=== PATIENT | female | born 1990 | race Two or more races ===

== ENCOUNTER 2023-01-17 14:21 | Outpatient (CLI) | payer OTHER | END 2023-01-17 16:09 | disposition home or self-care (01) | LOC: PRENATAL 14:21 | PROVIDERS: ATTEND Obstetrics & Gynecology Maternal & Fetal Medicine | DX: O35.3XX0 Maternal care for (suspected) damage to fetus from viral disease in mother, not applicable or unspecified (principal); O44.00 Complete placenta previa NOS or without hemorrhage, unspecified trimester; Z3A.28 28 weeks gestation of pregnancy ==

== ENCOUNTER → 2023-02-27 | Outpatient (CLI) | payer OTHER | END | disposition home or self-care (01) | LOC: PRENATAL 16:00 | PROVIDERS: ATTEND Obstetrics & Gynecology Maternal & Fetal Medicine | DX: O26.849 Uterine size-date discrepancy, unspecified trimester (principal); O36.8199 Decreased fetal movements, unspecified trimester, other fetus; Z3A.34 34 weeks gestation of pregnancy ==

== ENCOUNTER 2024-05-21 12:42 | Outpatient (CLI) | payer OTHER ==
[~2024-05-21 12:42] MED LIST: PRENATAL TABLE1 EAC1 PO
== END 2024-05-21 12:48 | disposition home or self-care (01) ==
LOC: PRENATAL 12:42
PROVIDERS: ATTEND Obstetrics & Gynecology Maternal & Fetal Medicine
DX: Z76.1 Encounter for health supervision and care of foundling (principal)

== ENCOUNTER 2024-07-05 13:56 | Outpatient (CLI) | payer OTHER | END 2024-07-05 13:57 | disposition home or self-care (01) | LOC: PRENATAL 13:56 | PROVIDERS: ATTEND Obstetrics & Gynecology Maternal & Fetal Medicine | DX: O44.00 Complete placenta previa NOS or without hemorrhage, unspecified trimester (principal); Z3A.22 22 weeks gestation of pregnancy ==

== ENCOUNTER 2024-09-15 14:52 | Outpatient (CLI) | payer OTHER | END 2024-09-15 14:53 | disposition home or self-care (01) | LOC: PRENATAL 14:52 | PROVIDERS: ATTEND Obstetrics & Gynecology Maternal & Fetal Medicine | DX: O26.849 Uterine size-date discrepancy, unspecified trimester (principal); O36.8199 Decreased fetal movements, unspecified trimester, other fetus; Z3A.33 33 weeks gestation of pregnancy ==

== ENCOUNTER 2024-11-01 07:18 | Inpatient (IN) | payer OTHER ==
[2024-11-01] VITALS (8 sets, daily range): BP systolic 117–135; BP diastolic 67–90
[~2024-11-01] VITALS: Ht 162.6 cm; Wt 85.3 kg
[2024-11-01] MEDS ORDERED: RINGERS SOLUTION,LACTATED 1,000 ML IV SCH (07:45)
[2024-11-01] MEDS ORDERED: OXYTOCIN 500 ML IV SCH (08:15)
[2024-11-01] MEDS ORDERED: MORPHINE SULFATE 4 MG/ML VIAL IV ONE ×2 (08:15→13:45)
[2024-11-01 08:40] LABS: HEMATOCRIT 33.9 % (36.0-45.00); HEMOGLOBIN 11.6 g/dL (12.0-15.00); MEAN CELL VOLUME 85.7 fL (80.00-100.00); MEAN CORPUSCULAR HEMOGLOBIN 29.3 pg (27.00-32.0); MEAN CORPUSCULAR HGB CONC 34.1 g/dl (32.0-36.0); PLATELET COUNT 326 K/uL (150-450); RED BLOOD COUNT 3.95 M/uL (4.00-6.00)
[2024-11-01 08:43] LABS: PH,URINE 5.5 (5.0-8.0); URINE APPEARANCE Clear; URINE BILIRRUBIN Negative (NEGATIVE); URINE BLOOD Small; URINE COLOR Yellow; URINE GLUCOSE Negative (NEGATIVE); URINE LEUKOCYTE Negative; URINE NITRATE Negative; URINE PROTEIN Negative (NEGATIVE); URINE UROBILINOGEN 0.2 E.U./dl
[2024-11-01 08:46] LABS: URINE BACTERIA 417.2 uL (0.0-1933); URINE EPITHELIAL CELLS 26.5 uL (0.0-38.8); URINE RBC 5.4 uL (0.0-20.8); URINE WBC 7.2 uL (0.0-23.2)
[2024-11-01 09:08] LABS: URINE CAST 0.14 uL (0.0-1.40); URINE KETONE 40 (NEGATIVE)
[2024-11-01 09:20] LABS: INR 0.94; PARTIAL THROMBOPLASTIN TIME 26.7 SECONDS (22.0-34.0); PROTHROMBIN TIME 10.3 SECONDS (9.0-11.5)
[2024-11-01 09:27] LABS: BILIRUBIN TOTAL 0.52 mg/dL (0.3-1.2); CALCIUM 9.2 mg/dL (8.5-10.1); CREATININE SERUM 0.56 mg/dL (0.55-1.02); GFR 125.45; GLOBULINA 4.1 G/DL (2.4-3.5); POTASSIUM 4.13 mEq/L (3.5-5.1); TOTAL PROTEIN 7.1 gm/dL (6.4-8.2)
[2024-11-01] MEDS ORDERED: ERYTHROMYCIN BASE OPHT 1GM EACH TUBE OP ONE ×2 (15:21→17:15)
[2024-11-01] MEDS ORDERED: OXYTOCIN 20 UNITS/1000ML RL PIGGYBAG IV ONE (15:21)
[2024-11-01] MEDS ORDERED: LIDOCAINE HCL 1% 10ML VIAL ONE (15:22)
[2024-11-01] MEDS ORDERED: CHLORHEXIDINE GLUCONATE 120 ML BOTTLE TOP ONE ×2 (15:22→17:15)
[2024-11-01] MEDS ORDERED: IBUprofen 400 MG TABLET PO PRN (16:15)
[2024-11-01] MEDS ORDERED: OXYTOCIN 1,000 ML IV SCH (17:15)
[2024-11-01] MEDS ORDERED: LIDOCAINE HCL 1% 10ML VIAL IJ ONE (17:15)
[2024-11-01 20:23] LABS: HEMATOCRIT 35.7 % (36.0-45.00); HEMOGLOBIN 11.9 g/dL (12.0-15.00); MEAN CELL VOLUME 86.9 fL (80.00-100.00); MEAN CORPUSCULAR HGB CONC 33.3 g/dl (32.0-36.0); PLATELET COUNT 359 K/uL (150-450); RED BLOOD COUNT 4.11 M/uL (4.00-6.00); RED CELL DISTRIBUTION WIDTH 14.2 % (11.5-14.5)
[2024-11-02 00:56] VITALS: BP 120/76
[2024-11-02 04:00] VITALS: BP 95/55
[2024-11-02 08:28] VITALS: BP 113/75
[2024-11-02] MEDS ORDERED: PNV,CALCIUM 72/IRON/FOLIC ACID 1 TAB TABLET PO SCH (09:00)
[2024-11-02 13:21] VITALS: BP 116/74
[2024-11-02 16:00] VITALS: BP 122/81
[2024-11-03] VITALS: BP 107/70
[2024-11-03 09:04] VITALS: BP 121/87
== END 2024-11-03 11:41 | disposition home or self-care (01) | DRG 807 ==
LOC: LDR 07:18 → OB/GYN 17:28
PROVIDERS: ADMIT Obstetrics & Gynecology; ATTEND Obstetrics & Gynecology
PROC: 10E0XZZ Delivery of Products of Conception, External Approach (ICD-10-PCS; principal; 2024-11-01)
PROC: 0KQM0ZZ Repair Perineum Muscle, Open Approach (ICD-10-PCS; 2024-11-01)
PROC: 4A1HXCZ Monitoring of Products of Conception, Cardiac Rate, External Approach (ICD-10-PCS; 2024-11-01)
DX: O70.1 Second degree perineal laceration during delivery (principal); Z37.0 Single live birth; Z3A.39 39 weeks gestation of pregnancy